=== PATIENT | male | born 1990 | race American Indian/Alaskan Native ===

== ENCOUNTER 2021-03-19 11:48 | Emergency (ER) | payer SELFPAY ==
[2021-03-19] MEDS ORDERED: BENZONATATE 100 MG CAP PO ONE (12:49)
[2021-03-19] MEDS ORDERED: ACETAMINOPHEN 500 MG TAB PO ONE (12:49)
--- NOTE | 2021-03-19 13:19 | XRay Report ---
CHEST 2 VIEWS INDICATION / CLINICAL INFORMATION: Chest Pain. COMPARISON: None available. FINDINGS: SUPPORT DEVICES: None. HEART / MEDIASTINUM: No significant abnormality. LUNGS / PLEURA: No significant pulmonary or pleural abnormality. No pneumothorax. ADDITIONAL FINDINGS: No significant additional findings. IMPRESSION: 1. No acute findings. Signer Name: Sonido Enriquez MD Signed: 03/19/2021 1:15 PM Workstation Name: [id number]
[2021-03-19 14:16] LABS: Basophils # (Auto) 0.1 K/mm3 (0.0-0.1); Basophils % (Auto) 0.9 % (0.0-1.8); Eosinophils # (Auto) 0.2 K/mm3 (0.0-0.4); Eosinophils % (Auto) 2.8 % (0.0-4.3); Hemoglobin 14.4 gm/dl (11.8-15.2); Lymphocytes # (Auto) 1.9 K/mm3 (1.2-5.4); Lymphocytes % (Auto) 23.1 % (13.4-35.0); Mean Corpuscular HGB Conc 34 % (32-34); Mean Corpuscular Volume 88 fl (84-94); Monocytes # (Auto) 0.6 K/mm3 (0.0-0.8); Platelet Count 197 K/mm3 (140-440); Red Blood Count 4.91 M/mm3 (3.65-5.03); Red Cell Distribution Width 13.1 % (13.2-15.2)
[2021-03-19 14:41] LABS: Alanine Aminotransferase 20 units/L (7-56); BUN/Creatinine Ratio 12; Blood Urea Nitrogen 11 mg/dL (9-20); Calcium 9.3 mg/dL (8.4-10.2); Hemolysis Index 25
[2021-03-19 14:56] VITALS: BP 129/84
[2021-03-19 15:09] LABS: INR 0.9 (0.87-1.13)
[2021-03-19 15:12] LABS: Partial Thromboplastin Time 29.1 Sec. (24.2-36.6)
--- NOTE | 2021-03-19 15:27 | Emergency Department Report ---
ED Chest Pain HPI - General Chief Complaint: Chest Pain Stated Complaint: CHESTPAIN/COUGH/CHRIS Time Seen by Provider: 03/19/21 12:44 Source: patient Mode of arrival: Ambulatory Limitations: No Limitations - History of Present Illness Initial Comments: This is a 30-year-old male nontoxic, well nourished in appearance, no acute signs of distress presents to the ED with c/o of productive cough, chest pains, body aches, rhinorrhea, nasal congestion x several days. Patient stated has chest pains only during coughing. Currently patient denies any chest pains. Patient describes productive cough as yellow mucus production. Patient denies any sick contact. atient denies pleuritic chest pain. Denies any radiation of pain when it does occur. Patient denies any recent travels, long car, recent hospital stays. Patient denies any calf pain or calf tenderness. Patient denies any chest pain, short of breath, fever, chills, nausea, vomiting, hemoptysis, numbness, tingling, headache or stiff neck. Patient denies any allergies or significant past medical history. Patient denies getting his COVID vaccines. MD Complaint: chest pain -: days(s) Onset: other (coughing) Pain Location: left chest, right chest Pain Radiation: none Severity: mild Severity scale (0 -10): 3 Quality: aching Consistency: intermittent Improves With: nothing Worsens With: nothing re: denies: nausea, vomting, diaphoresis, dyspnea, sense of impending doom Other Symptoms: cough. denies: fever, syncope, rash, acid taste in mouth, leg swelling, palpitations, burping, other Treatments Prior to Arrival: none Aspirin use within the Past 7 Days: (0) No - Related Data Previous Rx's Medication Instructions Recorded Last Taken Type Benzonatate [Tessalon Perles] 100 mg PO Q8HR PRN #12 capsule 03/19/21 Unknown Rx Allergies Allergy/AdvReac Type Severity Reaction Status Date / Time No Known Allergies Allergy Unverified 03/19/21 11:56 Heart Score - HEART Score History: Slightly suspicious EKG: Normal Age: < 45 Risk factors: No known risk factors Troponin: < normal limit HEART Score: 0 - EKG Read Time Time EKG Completed: 11:50 EKG Read Time: 11:54 (read by Dr. Castano) - Critical Actions Critical Actions: 0-3 pts:0.9-1.7%risk of adverse cardiac event.Candidate for discharge ED Review of Systems ROS: Stated complaint: CHESTPAIN/COUGH/CHRIS Other details as noted in HPI Comment: All other systems reviewed and negative Constitutional: denies: chills, fever Eyes: denies: eye pain, eye discharge, vision change ENT: denies: ear pain, throat pain Respiratory: cough. denies: orthopnea, shortness of breath, SOB with exertion, SOB at rest, wheezing Cardiovascular: chest pain. denies: palpitations, dyspnea on exertion, orthopnea, edema, syncope, paroxysmal nocturnal dyspnea Endocrine: no symptoms reported Gastrointestinal: denies: abdominal pain, nausea, diarrhea Genitourinary: denies: urgency, dysuria Musculoskeletal: denies: back pain, joint swelling, arthralgia Skin: denies: rash, lesions Neurological: denies: headache, weakness, paresthesias Psychiatric: denies: anxiety, depression Hematological/Lymphatic: denies: easy bleeding, easy bruising ED Past Medical Hx - Medications Home Medications: Home Medications Medication Instructions Recorded Confirmed Last Taken Type Benzonatate [Tessalon Perles] 100 mg PO Q8HR PRN #12 capsule 03/19/21 Unknown Rx ED Physical Exam - General Limitations: No Limitations General appearance: alert, in no apparent distress - Head Head exam: Present: atraumatic, normocephalic - Eye Eye exam: Present: normal appearance - Neck Neck exam: Present: normal inspection, full ROM. Absent: tenderness, meningismus, lymphadenopathy - Respiratory Respiratory exam: Present: normal lung sounds bilaterally. Absent: respiratory distress, wheezes, rales, rhonchi, stridor, chest wall tenderness, accessory muscle use, decreased breath sounds, prolonged expiratory - Cardiovascular Cardiovascular Exam: Present: regular rate, normal rhythm, normal heart sounds. Absent: bradycardia, tachycardia, irregular rhythm, systolic murmur, diastolic murmur, rubs, gallop - GI/Abdominal GI/Abdominal exam: Present: soft. Absent: distended, tenderness - Extremities Exam Extremities exam: Present: normal inspection, full ROM, normal capillary refill. Absent: tenderness - Back Exam Back exam: Present: normal inspection, full ROM - Neurological Exam Neurological exam: Present: alert, oriented X3, normal gait - Psychiatric Psychiatric exam: Present: normal affect, normal mood - Skin Skin exam: Present: warm, dry, intact, normal color. Absent: rash ED Course Vital Signs 03/19/21 03/19/21 03/19/21 11:54 13:26 13:31 Temperature 98.4 F Pulse Rate 90 77 Respiratory 20 11 L Rate Blood Pressure 121/82 Blood Pressure 130/79 [Left] O2 Sat by Pulse 97 97 98 Oximetry 03/19/21 03/19/21 03/19/21 13:45 14:01 14:15 Temperature Pulse Rate 77 80 75 Respiratory 15 12 10 L Rate Blood Pressure 121/82 129/84 129/84 Blood Pressure [Left] O2 Sat by Pulse 98 99 97 Oximetry 03/19/21 03/19/21 03/19/21 14:31 14:45 14:56 Temperature Pulse Rate 83 77 Respiratory 9 L 10 L Rate Blood Pressure 129/84 129/84 Blood Pressure [Left] O2 Sat by Pulse 98 99 100 Oximetry 03/19/21 03/19/21 15:01 15:15 Temperature Pulse Rate 74 74 Respiratory 10 L 11 L Rate Blood Pressure 129/84 129/84 Blood Pressure [Left] O2 Sat by Pulse 98 98 Oximetry - Reevaluation(s) Reevaluation #1: 03/19/21 15:23 Patient is speaking in full sentences with no signs of distress noted. OTTO score - Otto Score Age > 65: (0) No Aspirin use within the Past 7 Days: (0) No 3 or more CAD Risk Factors: (0) No 2 or more Angina events in past 24 hrs: (0) No Known CAD with more than 50% Stenosis: (0) No Elevated Cardiac Markers: (0) No ST Deviation Greater than 0.5mm: (0) No OTTO Score: 0 ED Medical Decision Making - Lab Data Result diagrams: 03/19/21 13:58 03/19/21 13:58 - Medical Decision Making This is a 30-year-old male that presents with viral bronchitis versus suspected Covid. Patient is stable and was examined by me. Chest x-ray has been obtained and dictated by radiologist with normal exam. OTTO and HEART score 0 pints. PERC score for DVT/SVT/PE 0 points. EKG normal sinus rhythm with no significant changes in ST. Negative troponin. Patient is notified of x-ray results with no questions noted. Patient does meet clinical concerns of COVID-19 but patient was instructed and educated on signs and symptoms and to self quarantine and seek medical attention as soon as possible if symptoms worsen and continue. Patient was instructed to increase hydration, rest and take Tylenol for fever episodes. Patient received Tylenol and tesslone perrls in the ED. Vitals stable. Patient is nonfebrile and normal heart rate. 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 At time of discharge, the patient does not seem toxic or ill in appearance. No acute signs of distress noted. Patient agrees to discharge treatment plan of care. No further questions noted by the patient. Critical care attestation.: If time is entered above; I have spent that time in minutes in the direct care of this critically ill patient, excluding procedure time. ED Disposition Clinical Impression: Viral bronchitis, Suspected COVID-19 virus infection Chest pain, unspecified Qualifiers: Chest pain type: unspecified Qualified Code(s): R07.9 - Chest pain, unspecified Disposition: 01 HOME / SELF CARE / HOMELESS Is pt being admited?: No Does the pt Need Aspirin: No Condition: Stable Instructions: COVID-19 Frequently Asked Questions, COVID-19, Nonspecific Chest Pain, Adult, Chronic Bronchitis (ED) Additional Instructions: Follow-up with a primary care/ammonia print operator doctor in 2 days or if symptoms worsen and continue return to emergency room as soon as possible. As educated and instructed to you must self quarantine yourself and people that you have been in close contact with similar symptoms for the next 14 days. Please see your nearest health department or primary care doctor that you are referred to for COVID testing. Increased rest, hydration, and take Tylenol as prescribed for fever episode. Prescriptions: Benzonatate [Tessalon Perles] 100 mg PO Q8HR PRN #12 capsule PRN Reason: Cough Referrals: PRIMARY MD TIMOTHY [Referring] - 3-5 Days ARMEN OLEARY MD [Staff Physician] - 3-5 Days JEAN GILES MD [Staff Physician] - 03/21/21 Time of Disposition: 15:28
--- NOTE | 2021-03-21 08:43 | Electrocardiograph Report ---
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
--- NOTE | 2021-03-22 12:21 | Electrocardiograph Report ---
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
== END 2021-03-19 15:45 | disposition home or self-care (01) ==
LOC: ED 11:48
DX: J20.8 Acute bronchitis due to other specified organisms (principal); R07.89 Other chest pain; B97.89 Other viral agents as the cause of diseases classified elsewhere; Z79.899 Other long term (current) drug therapy
CPT/HCPCS: 36415; 71046; 80053; 84484; 85025; 85610; 85730; 93005; 99284

== ENCOUNTER 2021-08-30 11:24 | Emergency (ER) | payer SELFPAY ==
[2021-08-30] MEDS ORDERED: HYOSCYAMINE SUBL 0.125 MG TAB SL ONE (12:08)
--- NOTE | 2021-08-30 12:13 | Emergency Department Report ---
ED Abdominal Pain HPI - General Chief Complaint: Abdominal Pain Stated Complaint: ABDOMINAL PAIN Time Seen by Provider: 08/30/21 12:02 Source: patient, family Mode of arrival: Ambulatory Limitations: No Limitations - History of Present Illness Initial Comments: Patient presents secondary to abdominal pain. Last night he developed abdominal pain in the periumbilical area. It seemed to wax and wane. It would last for minutes and then resolve. He was able to go to sleep last night. Today he was still having symptoms. They are the same. This is in the periumbilical area. The pain does not radiate or migrate. He has no associated vomiting, diarrhea, chest pain, dysuria, or frequency. He has never had symptoms like this before. He denies eating anything that tasted bad or unusual. Pain has not been migratory. - Related Data Previous Rx's Medication Instructions Recorded Last Taken Type Dicyclomine [Bentyl] 20 mg PO QID PRN #30 tablet 08/30/21 Unknown Rx Allergies Allergy/AdvReac Type Severity Reaction Status Date / Time No Known Allergies Allergy Unverified 03/19/21 11:56 ED Review of Systems ROS: Stated complaint: ABDOMINAL PAIN Other details as noted in HPI Comment: All other systems reviewed and negative Constitutional: denies: fever Eyes: denies: vision change ENT: denies: throat pain Respiratory: denies: cough Cardiovascular: denies: chest pain Endocrine: denies: unexplained weight loss Gastrointestinal: as per HPI Genitourinary: denies: dysuria Musculoskeletal: denies: back pain Skin: denies: rash Neurological: headache (Today) Hematological/Lymphatic: denies: easy bruising ED Past Medical Hx - Past Medical History Previous Medical History?: No - Surgical History Past Surgical History?: No - Family History Family history: no significant - Medications Home Medications: Home Medications Medication Instructions Recorded Confirmed Last Taken Type Dicyclomine [Bentyl] 20 mg PO QID PRN #30 tablet 08/30/21 Unknown Rx ED Physical Exam - General Limitations: No Limitations, Other (Pulse ox noted and normal) General appearance: alert, in no apparent distress - Head Head exam: Present: atraumatic, normocephalic - Eye Eye exam: Present: normal appearance, PERRL, EOMI. Absent: scleral icterus - ENT ENT exam: Present: normal orophraynx, normal external ear exam - Neck Neck exam: Present: normal inspection. Absent: meningismus - Respiratory Respiratory exam: Present: normal lung sounds bilaterally. Absent: respiratory distress - Cardiovascular Cardiovascular Exam: Present: regular rate, normal rhythm - GI/Abdominal GI/Abdominal exam: Present: soft, tenderness (Epigastric and periumbilical). Absent: guarding, rebound, pulsatile mass - Extremities Exam Extremities exam: Present: normal capillary refill - Back Exam Back exam: Absent: CVA tenderness (R), CVA tenderness (L) - Neurological Exam Neurological exam: Present: alert, oriented X3, CN II-XII intact, normal gait. Absent: motor sensory deficit - Psychiatric Psychiatric exam: Present: normal affect, normal mood - Skin Skin exam: Present: warm, dry ED Course Vital Signs 08/30/21 12:01 Temperature 98 F Pulse Rate 85 Respiratory 16 Rate O2 Sat by Pulse 95 Oximetry - Reevaluation(s) Reevaluation #1: 08/30/21 12:14 Labs were ordered. Medications were ordered. Old records reviewed. Reevaluation #2: 08/30/21 14:05 Labs are noted and the patient was discharged. ED Medical Decision Making - Lab Data Result diagrams: 08/30/21 12:39 08/30/21 12:39 - Medical Decision Making Patient presents with nontraumatic and nonradiating periumbilical pain. There was no evidence of acute hepatitis or pancreatitis. He did not have distention or tympany to suggest bowel obstruction. There was no peritoneal finding on exam. He did not have tenderness in the right lower quadrant to suggest appendicitis. There was no tenderness in the right upper quadrant suggestive of biliary disease. Critical Care Time: No Critical care attestation.: If time is entered above; I have spent that time in minutes in the direct care of this critically ill patient, excluding procedure time. ED Disposition Clinical Impression: Generalized abdominal pain Disposition: HOME / SELF CARE / HOMELESS Is pt being admited?: No Condition: Stable Instructions: Abdominal Pain, Adult, [id number], Pain Without a Known Cause Additional Instructions: Have a bland diet. Drink plenty of water. Return for problems. Follow-up with your regular doctor or the referral doctor for recheck. Prescriptions: Dicyclomine [Bentyl] 20 mg PO QID PRN #30 tablet PRN Reason: abd pain Referrals: PRIMARY CARE, [Primary Care Provider] - 3-5 Days DALJIT VALERA MD [Staff Physician] - 3-5 Days
[2021-08-30 13:16] LABS: Hematocrit 41.4 % (35.5-45.6); Hemoglobin 14.1 gm/dl (11.8-15.2); Mean Corpuscular HGB Conc 34 % (32-34); Mean Corpuscular Volume 88 fl (84-94); Platelet Count 193 K/mm3 (140-440); Red Blood Count 4.69 M/mm3 (3.65-5.03); Red Cell Distribution Width 13.3 % (13.2-15.2)
[2021-08-30 13:40] LABS: Alanine Aminotransferase 19 units/L (7-56); BUN/Creatinine Ratio 12; Blood Urea Nitrogen 11 mg/dL (9-20); Calcium 8.9 mg/dL (8.4-10.2); Hemolysis Index 36
== END 2021-08-30 14:12 | disposition home or self-care (01) ==
LOC: ED 11:24
DX: R10.84 Generalized abdominal pain (principal)
CPT/HCPCS: 36415; 80053; 83690; 85027; 99283